=== PATIENT | female | born 1975 | race Caucasian/White ===

== ENCOUNTER 2023-09-09 11:54 | Outpatient (CLI) | payer SELFPAY ==
--- NOTE | 2023-09-09 12:02 | US_ITS ---
WS: [id number] ULTRASOUND-GUIDED LEFT BREAST BIOPSY HISTORY: MASS IN BREAST COMPARISON: 08/03/2023 Procedure, risks and complications are explained to the patient. Medications are reviewed. Consent is obtained. The mass in the LEFT breast is localized with ultrasound. Ill-defined infiltrating mass noted posteri or to the nipple. Skin is cleansed with ChloraPrep and anesthetized with 1% buffered lidocaine. Small dermatome is made. Under sterile conditions mass is biopsied with a 14-gauge Achieve needle. Multipl e core biopsies are performed. Material placed in formalin and sent to pathology for review. No compl ications encountered. Breast tissue marker ([place] ultrasound enhanced ribbon): Single. Patient left the radiology suite with no complications. Patient is instructed to return to [facility] [facility] with any concerns. IMPRESSION: 1. Uncomplicated core needle biopsy soft tissue LEFT subareolar region. US/[id number] PATHOLOGY: Benign breast parenchyma with duct ectasia, apocrine metaplasia, fib rosis and usual ductal epithelial hyperplasia. No malignancy. RECOMMENDATION: Follow-up. 1. Findings on the prior mammogram from 08/03/2023 were very suspicious for mal ignancy. After discussing the findings with the patient she has indicated she h as recently been treated for breast abscess which is improving. The changes by ultrasound today appear slightly improved and there is less nipple retraction. The recent mammographic and ultrasound findings may all be due to a healing abs cess and fibrosis. Please correlate clinically. If this does not fit the patien t's history then surgical excision of this area should be performed. 2. Otherwise consider 3-month diagnostic LEFT mammogram with possible ultrasou nd to confirm improving soft tissue changes in the LEFT breast.
== END 2023-09-09 11:55 | disposition home or self-care (01) ==
LOC: RAD 11:58
PROVIDERS: Visit Provider Nurse Practitioner Family
DX: N63.0 Unspecified lump in unspecified breast (principal); N60.32 Fibrosclerosis of left breast; N60.42 Mammary duct ectasia of left breast
CPT/HCPCS: 19083; 88305